=== PATIENT | male | born 1950 | race Caucasian/White ===

== ENCOUNTER 2019-02-06 07:00 | Inpatient (IN) ==
[2019-01-30 08:59] LABS: HEMOGLOBIN 13.9 g/dL (14.0-18.0); MCV 79.7 FL (81-99); RDW 15.3 % (11.5-14.5)
--- NOTE | 2019-01-30 09:00 | EKG Report ---
Test Performed on : 01/30/2019 08:42:55 AM Test Reason : PAT Blood Pressure : / mmHG Vent. Rate : 066 BPM Atrial Rate : 066 BPM P-R Int : 150 ms QRS Dur : 082 ms QT Int : 414 ms P-R-T Axes : 074 030 060 degrees QTc Int : 434 ms Normal sinus rhythm. Septal infarct , age undetermined Abnormal ECG No previous ECGs available Confirmed by Yessenia Raza MD ([id number]) on 02/03/2019 4:08:41 PM
[2019-01-30 09:13] LABS: AGAP 11; BUN 18 mg/dL (8-22); CALCIUM 9.4 mg/dL (8.8-10.2); CHLORIDE 104 mmol/L (98-107); COSMO 285; ESTIMATED GFR > 60; GLUCOSE 93 mg/dL (70-104); POTASSIUM 4.6 mmol/L (3.5-5.1); SODIUM 142 mmol/L (136-145); TCO2 27 mmol/L (25-35)
[2019-01-30 10:15] LABS: HEMATOCRIT 43.7 % (42.0-52.0); MCH 25.4 PG (27-31); MCHC 31.8 g/dL (33-37); MPV 10.3 FL (7.4-10.4); RBC 5.48 XMIL (4.7-6.1); WBC 9.89 X1000 (4.8-10.8)
[2019-02-10] MEDS ORDERED: LR 1,000 ML ONE ×2 (05:38→09:11)
[2019-02-10] MEDS ORDERED: KEFZOL 1 GM/D5W 1 GM/50 ML IVPB ONE (05:38)
[2019-02-10] MEDS ORDERED: HEPARIN ONE (06:12)
[2019-02-10] MEDS ORDERED: KEFZOL ONE (06:12)
[2019-02-10] MEDS ORDERED: XYLOCAINE 1% ONE (06:12)
[2019-02-10] MEDS ORDERED: NS 1,000 ML ONE (06:13)
[2019-02-10] MEDS ORDERED: SENSORCAINE-MPF 0.5%/EPI 1:200,000 ONE (06:13)
[2019-02-10] MEDS ORDERED: NITROGLYCERIN 50 MG/D5W 50 MG/250 ML IV.SOLN ONE (06:14)
[2019-02-10] MEDS ORDERED: BRIDION ONE (06:14)
[2019-02-10] MEDS ORDERED: THROMBIN-JMI ONE (06:22)
[2019-02-10] MEDS ORDERED: NS 500 ML ONE (06:22)
[2019-02-10] MEDS ORDERED: FENTANYL ONE (06:25)
[2019-02-10] MEDS ORDERED: DIPRIVAN 1% ONE (06:25)
[2019-02-10] MEDS ORDERED: EPHEDRINE ONE (06:27)
[2019-02-10] MEDS ORDERED: XYLOCAINE-MPF 2% ONE (06:27)
[2019-02-10] MEDS ORDERED: NEO-SYNEPHRINE ONE (06:27)
[2019-02-10] MEDS ORDERED: NORCURON ONE (06:27)
[2019-02-10] MEDS ORDERED: SODIUM CHLORIDE 0.9% 10 ML ONE ×2 (06:27→06:33)
[2019-02-10] MEDS ORDERED: QUELICIN (DOSE) ONE (06:27)
[2019-02-10] MEDS ORDERED: HEPARIN (DOSE) ONE (06:28)
[2019-02-10] MEDS ORDERED: VERSED ONE (06:55)
[2019-02-10] MEDS ORDERED: DECADRON ONE (07:43)
[2019-02-10] MEDS ORDERED: ZOFRAN ONE (07:43)
[2019-02-10] MEDS ORDERED: OFIRMEV 1000 MG/ISOTONIC SOLN 1,000 MG/100 ML BOTTLE ONE (09:35)
[2019-02-10] MEDS ORDERED: ZOFRAN IV PRN (10:34)
[2019-02-10] MEDS ORDERED: ULTRAM PO PRN (10:34)
[2019-02-10] MEDS: LR 1,000 ML IV SCH ×2 (10:35→20:38)
--- NOTE | 2019-02-10 10:55 | OPERATIVE NOTE ---
PROCEDURE DATE: 02/10/2019 PROCEDURE PERFORMED: Right carotid endarterectomy. SURGEON: Mika Velazquez MD. DELIVERY LEAD: Francy WILSON. PREOPERATIVE DIAGNOSIS: High-grade right internal carotid stenosis. POSTOPERATIVE DIAGNOSIS: High-grade right internal carotid stenosis. DESCRIPTION OF PROCEDURE: After satisfactory general endotracheal anesthesia was achieved, the right side of the neck was prepped and draped in a sterile fashion. We marked the skin line. We anesthetized the skin with 0.5 Marcaine with epinephrine. We incised the skin, and carried our incision through the platysma. We then dissected along the anterior border of the sternocleidomastoid muscle. Crossing veins were ligated with 3-0 silk ties and divided. Additional medium clips were placed on each ligated stump. We exposed the common carotid surrounded with an umbilical tape. 5000 units of heparin were given. We then dissected the internal carotid. The bifurcation was high. We had to dissect and divide the small crossing vessels along the course of the internal carotid ligating and clipping them as we went. The hypoglossal nerve was identified and protected from harm. We after dividing the vessels then this allowed the nerve to fall forward. We identified the digastric tendon. We surrounded the internal with a small vessel loop. The external carotid and superior thyroid was surrounded with a large vessel loop. By this time, the heparin had circulated for 5 minutes so we clamped off the internal with a profunda clamp, used the vessel loop to clamp the external. We then clamped the common with an angled DeBakey clamp. Under 2.5 loupe magnification we then incised the common and extended with the Ding scissors. The high-grade stenosis was noted in the mid internal carotid, so was rather high up in the internal. We placed a 4 to 3 mm Sundt shunt. The smaller end going in the internal, the larger end going in the common. This clamp time was 3 to 4 minutes. We then under 2.5 loupe magnification raised the plaque out of the internal and dissected back to the common, transected with the Ding, did an eversion endarterectomy of the external and then dissected in the internal where we got a nice taper point in the internal. No additional tacking stitches were required. We irrigated out the endarterectomized vessel with heparinized saline and removed all leaflets we could identify. Because of the size of the artery we chose not to patch it so we then began closing the artery with a 6-0 Prolene stitch beginning proximally and going distally. As we reached the near the distal end we back bled the external then removed the shunt from the internal and clamped it off once again with a profunda clamp. We then removed the shunt from the common, flushing it. We then used an additional 6-0 Prolene stitch to go distally and came back to where we had finished our closure. We held the internal occluded, then opened the external and the common and after 5 seconds opened the internal. Flow was established. There was no evidence of dissection. A pulse was noted within the internal. One additional 6-0 Prolene stitch was required at the very distal end of our incision for complete hemostasis of the arterial closure. A couple of additional 6-0 Prolene stitches were used proximally to achieve complete hemostasis as well. Again a good pulse was noted in the internal. His pressure been maintained during the clamp time. We irrigated out the wound with Kefzol-impregnated saline. We then placed a Gee drain within the wound and secured it to the skin with a 2-0 silk. Once again, injected with 0.5 Marcaine with epinephrine along the course of the subcutaneous tissue. We then closed the platysma with a running 3-0 Polysorb. We closed the skin with a 4-0 Polysorb subcuticular stitch. Sterile dressing was applied. He tolerated procedure satisfactorily, was awakened at the time of this dictation. cc: MD Artemio Rizo MD
[2019-02-10] MEDS: ASPIRIN PO SCH (11:34)
[2019-02-10] MEDS: COZAAR PO SCH (12:00)
[2019-02-10] MEDS: WELCHOL PO SCH ×2 (12:00→20:33)
[2019-02-10] MEDS: NORCO-10 PO PRN ×3 (12:22→22:24)
[2019-02-10] MEDS ORDERED: OFIRMEV 1000 MG/ISOTONIC SOLN 1,000 MG/100 ML BOTTLE IV SCH (16:30)
--- NOTE | 2019-02-10 18:20 | GENERAL SURGERY PROGRESS NOTE ---
DATE: 02/10/2019 Mr. Walton is doing generally well. He is awake and alert. His trachea is in midline. No significant drainage. Heart rate 62, blood pressure 115/62. We did stop his IV Ofirmev and give him p.o. Hemlock because he takes it regularly at home. We will advance his diet tomorrow. We took his art line out today. cc: Mika Velazquez MD
[2019-02-11] MEDS: LR 1,000 ML IV SCH (00:41)
[2019-02-11] MEDS: NORCO-10 PO PRN ×5 (03:51→21:44)
[2019-02-11] MEDS ORDERED: LR 1,000 ML IV SCH (06:46)
--- NOTE | 2019-02-11 06:58 | GENERAL SURGERY PROGRESS NOTE ---
DATE: 02/11/2019 He is now postop day 1 after a right carotid endarterectomy. His heart rate is in the 50s, blood pressure 113/64. Neurologically, he is fine. His trachea is in the midline. The plan today is to remove his drain. We will advance his diet and transfer him up to a regular room. His arterial line is already out. cc: Mika Velazquez MD
[2019-02-11] MEDS: PRILOSEC PO SCH (07:01)
[2019-02-11] MEDS: WELCHOL PO SCH ×2 (08:24→21:13)
[2019-02-11] MEDS: COZAAR PO SCH (08:24)
[2019-02-11] MEDS: ASPIRIN PO SCH (08:24)
[2019-02-12 03:49] VITALS: BP 133/67
[2019-02-12] MEDS: NORCO-10 PO PRN (04:05)
[2019-02-12] MEDS: PRILOSEC PO SCH (06:38)
--- NOTE | 2019-02-12 07:09 | GENERAL SURGERY PROGRESS NOTE ---
DATE: 02/12/2019 SUBJECTIVE: Mr. Garcia is doing well. His primary complaint is a little bit of a headache and he does complain of numbness in his right ear. We discussed the possible reasons for that. PLAN: We will let him go home today. He is neurologically fine and he will resume his usual medications. I am content for him to take an aspirin 81 mg daily. We will write him something for pain. He will return to see me in the office in a week. cc: Mika Velazquez MD
--- NOTE | 2019-02-18 16:52 | DISCHARGE SUMMARY ---
ADMISSION DATE: 02/10/2019 DISCHARGE DATE: 02/12/2019 PRIMARY DISCHARGE DIAGNOSIS: High-grade right internal carotid stenosis. PRIMARY PROCEDURE: Right carotid endarterectomy. This is a 68-year-old admitted with a very high-grade right mid internal carotid stenosis. HOSPITAL COURSE: He underwent the endarterectomy on 02/10/2019. We observed Mr. Walton in the unit overnight, and he did well. We transferred him out to a regular room on 02/11. We did remove his drain. His art line had already been removed. On 02/12, he was neurologically fine, and it was felt he could be discharged home. He was discharged home on aspirin 81 mg daily. He will return to see me in the office in a week. We discussed wound care. cc: Miak Velazquez MD
== END 2019-02-12 08:25 | disposition home or self-care (01) | DRG 39 ==
LOC: SURHOLD 02-10 04:38 → ICU 02-10 10:25 → 4N 02-11 10:45
PROVIDERS: ADMIT Surgery; ATTEND Surgery

== ENCOUNTER 2019-05-19 16:37 | Inpatient (IN) ==
[2019-05-19] MEDS ORDERED: NS 500 ML IV ONE (16:50)
[2019-05-19] MEDS ORDERED: DULCOLAX PR ONE (16:51)
[2019-05-19] MEDS ORDERED: CATAPRES PO PRN (16:52)
[2019-05-19] MEDS ORDERED: DILAUDID IV PRN (16:55)
[2019-05-19] MEDS ORDERED: SODIUM CHLORIDE 0.9% INJ PRN (16:56)
[2019-05-19] MEDS ORDERED: PHENERGAN IV PRN (16:56)
[2019-05-19] MEDS ORDERED: NEXIUM IV SCH (17:00)
[2019-05-19] MEDS ORDERED: SODIUM CHLORIDE 0.9% INJ SCH (17:00)
[2019-05-19] MEDS: TYLENOL PO PRN (19:28)
[2019-05-19] MEDS: PROTONIX IV SCH (20:00)
[2019-05-19] MEDS: SODIUM CHLORIDE 0.9% INJ SCH (20:00)
[2019-05-19] MEDS: POTASSIUM CHLORIDE 10 MEQ in NS 1,000 ML IV SCH (20:00)
[2019-05-20] MEDS: TYLENOL PO PRN ×2 (04:22→15:31)
[2019-05-20] MEDS: POTASSIUM CHLORIDE 10 MEQ in NS 1,000 ML IV SCH ×2 (04:22→15:32)
[2019-05-20 07:10] LABS: BASO# 0.01 X1000 (0.0-0.2); BASO% 0.2 % (0.0-0.8); EOS# 0.18 X1000 (0.0-0.7); EOS% 3.8 % (0.0-10.0); HEMATOCRIT 39.8 % (42.0-52.0); HEMOGLOBIN 12.5 g/dL (14.0-18.0); LYMPH# 1.22 X1000 (1.2-3.4); LYMPH% 25.8 % (20.5-51.1); MCH 25.6 PG (27-31); MCHC 31.4 g/dL (33-37); MCV 81.6 FL (81-99); MONO# 0.44 X1000 (0.11-0.59); MONO% 9.3 % (1.7-9.3); MPV 10.6 FL (7.4-10.4); NEUT# 2.88 X1000 (1.4-6.5); NEUT% 60.9 % (42.2-75.2); PLT 202 X1000 (130-400); RBC 4.88 XMIL (4.7-6.1); WBC 4.73 X1000 (4.8-10.8)
[2019-05-20 07:34] LABS: AGAP 11; BUN 20 mg/dL (8-22); CALCIUM 8.4 mg/dL (8.8-10.2); CHLORIDE 106 mmol/L (98-107); COSMO 280; CREATININE 1.1 mg/dL (0.7-1.2); ESTIMATED GFR > 60; GLUCOSE 88 mg/dL (70-104); POTASSIUM 4.3 mmol/L (3.5-5.1); SODIUM 139 mmol/L (136-145); TCO2 22 mmol/L (25-35)
[2019-05-20] MEDS ORDERED: MILK OF MAGNESIA PO ONE (08:41)
--- NOTE | 2019-05-20 09:26 | Diag Imaging Result Doc PS360 ---
EXAM: ABDOMEN FLAT/UPRIGHT 05/20/2019 HISTORY: sbo TECHNIQUE: Flat and upright abdomen COMMENT: There is some gas and stool in the distal colon and rectum. There is no evidence of dilatation of the small bowel or stomach. There is no evidence organomegaly or mass. IMPRESSION: No evidence of small bowel obstruction. Electronically signed by Derrick Aj 05/20/2019 9:24 AM
[2019-05-20] MEDS: DULCOLAX PR ONE ×2 (09:44→20:00)
--- NOTE | 2019-05-20 11:33 | HISTORY AND PHYSICAL ---
CHIEF COMPLAINT: Abdominal pain and chills. HISTORY OF PRESENT ILLNESS: The patient is a 68-year-old, white male followed in my medical practice. Comes in with 2 to 3 day history of abdominal pain diffusely with some chills and headache. He has had hard bowel movements recently. He has had difficulty tolerating statin drugs in the past and, thus, we had placed him on low-dose Crestor at 5 mg daily as he suffers from hypercholesterolemia and has a high propensity of atherosclerosis due to his longstanding history of smoking in the past. Patient was also placed on Welchol at 325 mg 3 p.o. b.i.d. and he has had some hard bowel movements. He also is on Velma 5 twice a day per pain clinic and he has had constipation. Last night, he had severe pain, keeping him up all night. He took some Prilosec x1 without great benefit. Other medications prior to admission are Diovan 320 mg daily, omeprazole 40 mg daily p.r.n., ibuprofen occasionally 800 mg. ALLERGIES: NKDA. PAST MEDICAL HISTORY: 1. Hypertension. 2. Statin intolerance. 3. Hypercholesterolemia. 4. Chronic obstructive pulmonary disease. 5. History of right carotid bruit and right carotid endarterectomy. 6. Gastroesophageal reflux disease. 7. Osteoarthritis. 8. Chronic pain syndrome related to osteoarthritis. PAST SURGICAL HISTORY: 1. Tonsillectomy in 1953. 2. Left 4th digit ORIF in 1984. 3. Left inguinal hernia repair. 4. Right CEA in January 2019. IMMUNIZATIONS: Pneumovax 23 given 12/14/2017. The patient has refused Prevnar 13 vaccination. FAMILY HISTORY: Notable for colon cancer in his great grandmother. Mother with breast cancer. Father with diabetes mellitus, hypertension in his grandfather, DC in his grandmother and mother, stroke in his grandfather. SOCIAL HISTORY: Patient lives in [place]. He is . 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 Has 3 children, 5 stepchildren. Quit smoking in June 2016 but has a 40 pack year history of smoking. Generally drinks 3 to 4 beers per week. REVIEW OF SYSTEMS: Negative except as above. Last colonoscopy May 2016 revealed some diverticulosis and a few scattered polyps. Scheduled for repeat colonoscopy May 2021. PHYSICAL EXAMINATION: VITAL SIGNS: Weight 180, blood pressure 100/60, pulse 77, BMI 25, height 6 feet, temperature 97.5 degrees. GENERAL: Tall, thin, white male. Mildly ill-appearing with distress with his stomach. SKIN: Negative. HEENT: PERRL, EOMI. Sclerae anicteric. OP, no redness. Tongue is in the midline. Slightly dry mucous membranes noted. NECK: No LA, TMG, JVD. Faint right carotid bruit. CV: RRR. No murmur. LUNGS: CTA. Distant breath sounds. BACK: NT. ABDOMEN: Soft. Active bowel sounds. There is tenderness diffusely. Moderate mild distention. No mass or organomegaly. No rebound or guarding. GENITOURINARY/RECTAL: Deferred. EXTREMITIES: No calf tenderness, cords, or edema. OA changes diffuse and mild. NEUROLOGIC: CN 2 through 12 intact. NF. LABORATORY DATA: Obtained and shows normal CBC. CMP shows prominent elevation in creatinine at 2.2 with elevated BUN as well, which is new. Amylase, lipase, LFTs normal. Flat and upright of the abdomen with one view of the chest reveals fairly pronounced constipation. CT RSS reveals some small bowel air fluid levels and constipation. ASSESSMENT: 1. Ileus, rule out small-bowel obstruction. 2. Chronic pain syndrome, on chronic narcotics per Pain Clinic. 3. Intolerance to statins with patient on Welchol and low-dose Crestor. 4. Hypercholesterolemia. 5. Hypertension. 6. Chronic obstructive pulmonary disease. 7. History of atherosclerosis, status post right carotid endarterectomy. 8. Prerenal azotemia. PLAN: We will admit the patient to the hospital. We will start IV hydration. Stop the Welchol and hold the Crestor for now. We will hold his ARB. We will give him Dilaudid sparingly for pain control. Give him Dulcolax suppositories. Continue PPI but change to IV. Give him Phenergan as needed for nausea and vomiting. Follow serial x-rays on his abdomen. cc: Artemio Moore MD
[2019-05-20] MEDS ORDERED: POTASSIUM CHLORIDE 10 MEQ in NS 1,000 ML IV SCH (17:54)
--- NOTE | 2019-05-20 20:43 | PROGRESS NOTE ---
DATE: 05/20/2019 SUBJECTIVE: Patient overall feeling better. He is tolerating the clear liquids. He has had watery loose bowel movements. He has had 1 dose of Milk of Magnesia and 1 Dulcolax suppository this morning. OBJECTIVE: Afebrile. Vital signs stable.CV: RRR without murmur. Lungs CTA. Abdomen soft. Active bowel sounds. Nontender. Extremities: No calf tenderness, cords or edema. Neurologic: Cranial nerves 2-12 are intact. Nonfocal. LABORATORY DATA: White count 4.7, hemoglobin 12.5, platelets 202,000. Sodium 139, potassium 4.3, chloride 106, CO2 is 22, BUN 20. Creatinine 1.1, much improved, down from 2.2 yesterday. Calcium 8.4. DIAGNOSTIC DATA: Flat and upright of the abdomen this morning reveals no evidence of small-bowel obstruction. Gas and stool in the distal colon and rectum. ASSESSMENT: 1. Ileus, thought related to opioid-induced constipation and concomitant use of Welchol. 2. Chronic pain syndrome, on chronic [place] 5 mg 1 to 3 per day per pain clinic. 3. Intolerance to statins, with patient now not able to take the Welchol. We will retry the higher dose of the Crestor, which so far he had tolerated well at low dose, whereas he did not tolerate other statins well. 4. Hypercholesterolemia. 5. Atherosclerosis, status post right carotid endarterectomy. 6. Chronic obstructive pulmonary disease. 7. Hypertension. 8. Prerenal azotemia, resolved with hydration. PLAN: Ambulate patient. Leave off Welchol as we are doing. We are holding his ARB currently due to the renal insufficiency when he came in. We will continue to hold that. Advance his diet to GI soft. Decrease the IV fluid rate. Ambulate patient. Recheck labs in the morning along with x- ray, and if he continues to do well we will possibly discharge in the morning. We will go ahead and advance to GI soft diet now. Of course, we plan on getting him home on a medication such as MiraLAX and leaving him off the Welchol permanently. cc: Artemio Moore MD
[2019-05-20] MEDS: PROTONIX IV SCH (22:30)
[2019-05-20] MEDS: SODIUM CHLORIDE 0.9% INJ SCH (22:31)
[2019-05-21 06:51] LABS: BASO# 0.01 X1000 (0.0-0.2); BASO% 0.2 % (0.0-0.8); EOS# 0.21 X1000 (0.0-0.7); EOS% 3.6 % (0.0-10.0); HEMATOCRIT 40.7 % (42.0-52.0); HEMOGLOBIN 12.7 g/dL (14.0-18.0); LYMPH# 1.78 X1000 (1.2-3.4); LYMPH% 30.7 % (20.5-51.1); MCH 25.6 PG (27-31); MCHC 31.2 g/dL (33-37); MCV 81.9 FL (81-99); MONO# 0.62 X1000 (0.11-0.59); MONO% 10.7 % (1.7-9.3); MPV 10.5 FL (7.4-10.4); NEUT# 3.18 X1000 (1.4-6.5); NEUT% 54.8 % (42.2-75.2); PLT 221 X1000 (130-400); RBC 4.97 XMIL (4.7-6.1); RDW 14.9 % (11.5-14.5)
[2019-05-21 07:15] LABS: AGAP 10; BUN 11 mg/dL (8-22); CHLORIDE 107 mmol/L (98-107); COSMO 286; ESTIMATED GFR > 60; GLUCOSE 90 mg/dL (70-104); POTASSIUM 4.2 mmol/L (3.5-5.1); SODIUM 144 mmol/L (136-145); TCO2 27 mmol/L (25-35)
[2019-05-21] MEDS: TYLENOL PO PRN (07:28)
--- NOTE | 2019-05-21 08:34 | Diag Imaging Result Doc PS360 ---
EXAM: ABDOMEN FLAT/UPRIGHT HISTORY: f/u ileus TECHNIQUE: Two views COMPARISON: 05/20/2019 FINDINGS: No free air beneath the diaphragm. No organomegaly. Mild air distended loops of small bowel in the lower left quadrant. There is an stool in the colon. No foreign body. IMPRESSION: Suspect an ileus Electronically signed by Trell Bae 05/21/2019 8:31 AM
[2019-05-21] MEDS ORDERED: DULCOLAX PR ONE (08:47)
[2019-05-21] MEDS ORDERED: SALINE LOCK IV FLUID XX ONE (08:47)
[2019-05-21] MEDS ORDERED: FLEET ENEMA PR ONE (17:30)
[2019-05-21] MEDS: SODIUM CHLORIDE 0.9% INJ SCH (21:13)
[2019-05-21] MEDS: PROTONIX IV SCH (21:13)
--- NOTE | 2019-05-22 02:48 | PROGRESS NOTE ---
DATE: 05/21/2019 SUBJECTIVE: The patient is still having no bowel movements. Still feels uncomfortable in his low abdomen. No bowel movement after Dulcolax suppository once this morning. OBJECTIVE: Vital Signs: Afebrile. Pulse 67, respirations 20, blood pressure 176/96, O2 saturation 96% on room air. CV: RRR without murmur. Lungs: Clear. Abdomen: Mild distention. Active bowel sounds. Extremities: No calf tenderness, cords or edema. Neurologic: Cranial nerves are intact. No focal deficits. LABORATORY DATA: White count 5.8, hemoglobin 12.7, platelets 221,000. BMP normal with creatinine 1.0, potassium 4.2, calcium 9.0. IMAGING: Flat and upright of the abdomen this morning reveals mild air distended loops of small bowel in the left lower quadrant. Stool in the colon. No foreign body. ASSESSMENT: 1. Ileus thought related to opioid induced constipation and usual Welchol. 2. Chronic pain syndrome on chronic [place] 5 mg 1 to 3 per day per pain clinic. 3. Intolerance to statins in the past. 4. Hypercholesterolemia. 5. Atherosclerosis with history of right carotid endarterectomy. 6. Chronic obstructive pulmonary disease. 7. Hypertension. 8. Prerenal azotemia, resolved. PLAN: We have stopped his IV fluids. We tried another Dulcolax suppository this morning. We have ambulated the patient. We have increased his diet, but so far not having successful bowel movement, so we will give him a fleets enema x1, and if that is unsuccessful we will try magnesium citrate tomorrow and GI consultation. Resume his home Diovan at 320 mg daily for BP control. Holding his aspirin and Crestor, and of course we are going to leave him off Welchol permanently. cc: Artemio Moore MD
[2019-05-22] MEDS: TYLENOL PO PRN (07:30)
[2019-05-22] MEDS ORDERED: DIOVAN PO SCH (09:00)
--- NOTE | 2019-05-22 13:46 | Diag Imaging Result Doc PS360 ---
EXAM: ABDOMEN FLAT/UPRIGHT 05/22/2019 HISTORY: f/u ileus TECHNIQUE: Flat and upright abdomen COMMENT: There is some stool in the colon without evidence of dilatation. There is retained gastric contents. The small bowel is not distended and there is no evidence organomegaly or mass. IMPRESSION: No evidence of ileus. Electronically signed by Derrick Aj 05/22/2019 1:44 PM
[2019-05-22 16:04] VITALS: BP 173/82
[2019-05-22] MEDS ORDERED: FLU VACCINE IM ONE (16:42)
--- NOTE | 2019-05-23 03:50 | PROGRESS NOTE ---
DATE: 05/22/2019 SUBJECTIVE: The patient seen earlier in the evening. He has been doing better. He had a bowel movement fairly significant after the enema last evening. He has been eating well without nausea or vomiting. OBJECTIVE: Vital signs: Afebrile. Pulse 67, respirations 18, blood pressure 173/82, O2 saturation on room air 96%. Cardiovascular: RRR. No murmur. Lungs: CTA. Abdomen: Softer. Active bowel sounds noted. No pinpoint tenderness. Extremities: No calf tenderness, cords. Neurologic: Cranial nerves 2-12 are intact. No focal deficits. Alert and oriented x3. IMAGING: Flat and upright of the abdomen shows some stool in the colon with no evidence at all of dilation. Some retained gastric contents. Small-bowel not distended. No evidence of organomegaly or mass. No evidence of ileus. ASSESSMENT: 1. Ileus, resolved. 2. Chronic pain syndrome with possible OIC component due to being on [place] 5. 3. Intolerance to statins. 4. Hypercholesterolemia with patient being on low-dose Crestor at 5 mg daily. We have stopped the Welchol due to constipation and will increase the Crestor from 5 to 10 mg now at discharge. 5. Atherosclerosis with history of prior right carotid endarterectomy. 6. Chronic obstructive pulmonary disease. 7. Hypertension. 8. Prerenal azotemia, resolved. PLAN: We will discharge the patient home on Linzess 145 mcg daily, Reglan 10 mg p.o. a.c., Crestor has been increased from 5 to 10 mg nightly. He will continue his [place] 5 per pain clinic at 1 p.o. daily to t.i.d. as needed, Diovan 320 mg p.o. daily, aspirin 81 mg daily, omeprazole 40 mg p.o. daily. He will remain off the Welchol for good. He will follow up in my office in 3 to 4 days or sooner should he worsen. [place] soft diet encouraged. cc: Artemio Moore MD
--- NOTE | 2019-06-16 08:54 | DISCHARGE SUMMARY ---
ADMISSION DATE: 05/20/2019 DISCHARGE DATE: 05/22/2019 DIAGNOSE: 1. Ileus, resolved. 2. Chronic pain syndrome with possible opioid-induced constipation component due to being on [place] 5. 3. Intolerance to statins. 4. Hypercholesterolemia, with patient having been reintroduced on low-dose Crestor and so far tolerating it at 5 mg daily. Also, having been on Welchol due to intolerance of high-dose steroids, but now off of the Welchol due to potential that this has worsened his constipation tendencies. 5. Atherosclerosis with history of prior right carotid endarterectomy. 6. Chronic obstructive pulmonary disease. 7. Hypertension. 8. Prerenal azotemia, resolved. PROCEDURES: 1. Abdominal x-ray/flat and upright of the abdomen done 05/20 revealing no evidence of small- bowel obstruction. 2. Flat and upright of the abdomen done 05/21 revealing suspected ileus. 3. Flat and upright of the abdomen done on 05/22 showed resolution of ileus. REASON FOR ADMISSION AND HOSPITAL COURSE: The patient is a 68-year-old, white male followed in my medical practice, who came in with a 2 to 3 day history of abdominal pain with some chills and headache, hard bowel movements had been noted recently. We had placed him back on some low-dose Crestor, as he has had prominent difficulties tolerating statins in the past. We tried him back on Crestor at 5 mg daily and due to the intolerance, had tried Welchol at full dose to try to help with the cholesterol, as he has had a history of right carotid endarterectomy in the past. The patient also takes [place] 5 from the Pain Clinic. He has had some constipation tendencies with that and it seems the Welchol seem to aggravate that, and thus he was admitted, x-ray showed some possible ileus. We treated him with laxatives. He was maintained on PPI and some antihypertensives in the form of Diovan 320 mg daily. Initially, we actually held the ARB due to some renal insufficiency. He was hydrated well and initially we left him on some clear liquids. We moved to a GI soft diet the 2nd hospital day, and of course left him off the Welchol. The patient had a large bowel movement after enema was given the night prior to discharge, and he began to eat well, have no nausea or vomiting, and it was felt he could be discharged home. DISCHARGE MEDICATIONS: 1. Linzess 145 mcg p.o. daily. 2. Reglan 10 mg p.o. a.c. 3. Crestor will be increased from 5 to 10 mg nightly. 4. [place] will be continued at 5 mg p.o. b.i.d. to t.i.d. as needed, as this is per the Pain Clinic. 5. Diovan 320 mg p.o. daily re-initiated. 6. Aspirin 81 mg daily. 7. Omeprazole 40 mg p.o. daily. 8. He was left off the Welchol. He will follow up in my office in 1 to 2 weeks. cc: Artemio Moore MD
== END 2019-05-22 17:23 | disposition home or self-care (01) | DRG 392 ==
LOC: DIRADM 16:37 → 4N 17:37
PROVIDERS: ADMIT Family Medicine; ATTEND Family Medicine